=== PATIENT | male | born 1970 | race Caucasian/White ===

== ENCOUNTER 2025-05-02 08:57 | Observation (INO) | payer OTHER ==
[2025-05-02 09:32] LABS: Basophils # (A) 0.06 10*3/uL (0.00-0.10); Basophils % (A) 1.1 %; Eosinophils # (A) 0.19 10*3/uL (0.04-0.35); Eosinophils % (A) 3.4 %; HGB 16.4 g/dL (13.0-17.0); Lymphocytes # (A) 1.88 10*3/uL (0.90-5.00); Lymphocytes % (A) 33.7 %; MCH 28.7 pg (27.0-32.0); MCHC 33.5 g/dL (32.0-37.0); MCV 85.7 fL (80.0-97.0); Mean Platelet Volume 10.1 fL (9.5-12.2); Monocytes # (A) 0.74 10*3/uL (0.20-1.00); Monocytes % (A) 13.3 %; Neutrophils % (A) 48.3 %; Platelet Count 271 10*3/uL (140-440); RBC 5.72 10*6/uL (4.40-5.60); RDW 13.6 % (11.5-14.5); WBC 5.58 10*3/uL (4.50-10.00)
--- NOTE | 2025-05-02 09:36 | CT ---
EXAMINATION TYPE: CODE STROKE: CT brain wo contr DATE OF EXAM: 05/02/2025 9:30 AM COMPARISON: None. CLINICAL INDICATION: Male, 54 years old with history of Neuro deficit, acute, stroke suspected, confu hipolito/code stroke TECHNIQUE: Brain: Axial CT images of the brain were obtained with coronal and sagittal reformats created and rev iewed. Contrast used: None. Oral contrast used: None. CT DLP: 1072 mGycm, Automated exposure control for dose reduction was used. FINDINGS: Brain: Extra-axial spaces: No abnormal extra-axial fluid collections. Ventricular system: Within normal limits Cerebral parenchyma: No acute intraparenchymal hemorrhage or mass effect. The lozano-white junction is well differentiated. Cerebellum: Unremarkable. Mass effect: No evidence of midline shift. Intracranial vasculature: unremarkable Soft tissues: Normal. Calvarium/osseous structures: No depressed skull fracture. Paranasal sinuses and mastoid air cells: Mild scattered paranasal sinus disease. Visualized orbits: Orbital contents are intact. IMPRESSION: No acute intracranial process. Findings communicated to Qing Bauer DO on 05/02/2025 9:[address] Amadou Castellanos. [facility], , 05/02/2025 9:34 AM
[2025-05-02 09:50] LABS: ALT 37 U/L (4-49); AST 30 U/L (17-59); African American GFR (CKD) 86 (>60 ml/min/1.73 sqM); Albumin 4.5 g/dL (3.5-5.0); Alkaline Phosphatase 54 U/L (38-126); Anion Gap 11 mmol/L; Blood Urea Nitrogen 16 mg/dL (9-20); Carbon Dioxide 23 mmol/L (22-30); Chloride 108 mmol/L (98-107); Creatine Kinase 190 U/L (55-170); Glucose 126 mg/dL (74-99); Non-African American GFR(CKD) 74 (>60 ml/min/1.73 sqM); Potassium 3.7 mmol/L (3.5-5.1); Sodium 142 mmol/L (137-145); Total Bilirubin 0.6 mg/dL (0.2-1.3); Total Protein 7.7 g/dL (6.3-8.2)
--- NOTE | 2025-05-02 10:03 | CT ---
EXAMINATION TYPE: CT angio head neck DATE OF EXAM: 05/02/2025 9:53 AM COMPARISON: CT brain. CLINICAL INDICATION: Male, 54 years old with history of Neuro deficit, acute, stroke suspected; PHH, Code Stroke. Confusion. TECHNIQUE: Axially acquired helical CT angiogram of the head and neck was obtained with contrast. Axi al images are supplemented with 3D reconstructions and MIP images which were post-processed at an in dependent workstation. NASCET criteria used. Contrast used:65 ml mL of Isovue 370 with IV Contrast, Oral contrast used: None. CT DLP: 826.6 mGycm, Automated exposure control for dose reduction was used. FINDINGS: CTA HEAD: No evidence of acute intracranial hemorrhage, mass effect, or midline shift. The ventricles, sulci, a nd cisterns are unremarkable. Vertebral arteries: The vertebral arteries are patent. Vertebral artery dominance: Codominant Basilar artery: The basilar artery is intact. The basilar artery bifurcation is normal. Internal Carotid arteries: The cervical, petrous, cavernous and supraclinoid segments are normal. SHELLY: Patent with no evidence of aneurysm. ACOM: Present without evidence of aneurysm. MCA: Patent with no evidence of aneurysm. SALES AND MARKETING COORDINATOR: Patent with no evidence of aneurysm. origin right . PCOM: origin right and normal left Dural sinuses: Patent. CTA NECK: Right Carotid System: The common carotid artery and external carotid artery are patent. The carotid bifurcation demonstrate s no evidence of hemodynamically significant stenosis. The remaining portions of the internal carotid artery demonstrate normal size without significant narrowing. Left Carotid System: The common carotid artery and external carotid artery are patent. The carotid bifurcation demonstrate s no evidence of hemodynamically significant stenosis. The remaining portions of the internal carotid artery demonstrate normal size without significant narrowing. Vertebral arteries are patent without evidence hemodynamically significant stenosis. There is a three-vessel aortic arch. The origins of the great vessels are patent. No evidence of hemo dynamically significant stenosis. There is a 22 mm Isthmus thyroid nodule. IMPRESSION: 1. No evidence of dissection of the cervical internal carotid arteries or vertebral arteries. 2. No any evidence of significant stenosis at the carotid bifurcations. 3. No evidence of intracranial high-grade stenosis or intracranial aneurysm. 4. 22 mm Isthmus thyroid nodule. Outpatient nonemergent thyroid ultrasound recommended if not recent ly performed. [facility], , 05/02/2025 10:01 AM
[2025-05-02 10:09] LABS: Partial Thromboplastin Time 25.7 sec (22.0-30.0); Prothrombin Time 10.7 sec (10.0-12.5)
--- NOTE | 2025-05-02 10:35 | XR ---
EXAMINATION TYPE: XR chest 2V DATE OF EXAM: 05/02/2025 10:19 AM COMPARISON: None CLINICAL INDICATION: Male, 54 years old with history of altered mental status; [facility] TECHNIQUE: XR chest 2V Frontal and lateral views of the chest. FINDINGS: Lungs/Pleura: Low lung volumes are present. There is no evidence of pleural effusion, focal consolida tion, or pneumothorax. Pulmonary vascularity: Unremarkable. Heart/mediastinum: Cardiomediastinal silhouette is unremarkable. Musculoskeletal: No acute osseous pathology. IMPRESSION: Low lung volumes with a generalized hazy appearance which could represent atelectasis versus pulmonar y edema correlate with serum BNP. [facility], , 05/02/2025 10:32 AM
--- NOTE | 2025-05-02 11:41 | ED ---
Altered Mental Status HPI - General Chief Complaint: Altered Mental Status Stated Complaint: Confusion Time Seen by Provider: 05/02/25 09:10 Source: patient Mode of arrival: ambulatory Limitations: no limitations - History of Present Illness Initial Comments: 54-year-old male with no reported past medical history who presents to the emergency department with possible strokelike symptoms. Patient states he went to bed at 10 PM last night and he felt normal. He then awoke this morning and realized that he was having expressive aphasia. He called his mom who then brought him into the emergency department. Patient arrives with extremely elevated blood pressure. Denies history of hypertension but also does not see a doctor. He does admit to an occipital headache. No visual changes. No numbness, tingling or weakness in his extremities. No history of stroke. Patient does not take any medications. No other alleviating, precipitating or modifying factors - Related Data Previous Rx's Medication Instructions Recorded Acetaminophen Tab [Tylenol] 650 mg PO Q4HR PRN tab 05/04/25 Aspirin 81 mg PO DAILY #30 tab 05/04/25 Atorvastatin [Lipitor] 40 mg PO DAILY #30 tab 05/04/25 Clopidogrel [Plavix] 75 mg PO DAILY #30 tab 05/04/25 Metoprolol Tartrate [Lopressor] 12.5 mg PO BID #60 tab 05/04/25 amLODIPine [Norvasc] 10 mg PO DAILY #30 tab 05/04/25 Allergies Allergy/AdvReac Type Severity Reaction Status Date / Time No Known Allergies Allergy Verified 05/02/25 12:53 Review of Systems ROS Statement: Those systems with pertinent positive or pertinent negative responses have been documented in the HPI. ROS Other: All systems not noted in ROS Statement are negative. Past Medical History Past Medical History: No Reported History History of Any Multi-Drug Resistant Organisms: None Reported Past Surgical History: No Surgical Hx Reported Past Psychological History: No Psychological Hx Reported Smoking Status: Former smoker Past Alcohol Use History: None Reported Past Drug Use History: None Reported General Exam Limitations: no limitations General appearance: alert, in no apparent distress Head exam: Present: atraumatic, normocephalic, normal inspection Eye exam: Present: normal appearance, PERRL, EOMI. Absent: scleral icterus, conjunctival injection, periorbital swelling ENT exam: Present: normal exam, mucous membranes moist Neck exam: Present: normal inspection. Absent: tenderness, meningismus, lymphadenopathy Respiratory exam: Present: normal lung sounds bilaterally. Absent: respiratory distress, wheezes, rales, rhonchi, stridor Cardiovascular Exam: Present: normal rhythm, tachycardia, normal heart sounds. Absent: systolic murmur, diastolic murmur, rubs, gallop, clicks GI/Abdominal exam: Present: soft, normal bowel sounds. Absent: distended, tenderness, guarding, rebound, rigid Extremities exam: Present: normal inspection, full ROM, normal capillary refill. Absent: tenderness, pedal edema, joint swelling, calf tenderness Back exam: Present: normal inspection Neurological exam: Present: alert, oriented X3, CN II-XII intact, other (Mild expressive aphasia) Psychiatric exam: Present: normal affect, normal mood Skin exam: Present: warm, dry, intact, normal color. Absent: rash Course Vital Signs 05/02/25 05/02/25 05/02/25 09:04 09:08 09:53 Temperature 98 F Pulse Rate 114 H 95 Pulse Rate [ Pulse Oximetery ] Respiratory 20 20 Rate Blood Pressure 206/126 191/136 172/130 Blood Pressure [Left Arm] O2 Sat by Pulse 97 99 Oximetry 05/02/25 05/02/25 05/02/25 10:33 12:25 14:27 Temperature Pulse Rate 100 96 86 Pulse Rate [ Pulse Oximetery ] Respiratory 20 20 20 Rate Blood Pressure 181/131 190/130 180/119 Blood Pressure [Left Arm] O2 Sat by Pulse 95 97 97 Oximetry 05/02/25 05/02/25 15:10 15:22 Temperature 97.9 F Pulse Rate 91 Pulse Rate [ 91 Pulse Oximetery ] Respiratory 20 18 Rate Blood Pressure 178/112 Blood Pressure 193/120 [Left Arm] O2 Sat by Pulse 97 97 Oximetry Medical Decision Making - Medical Decision Making Was pt. sent in by a medical professional or institution (, PA, APPLICATION ADMINISTRATOR, urgent care, hospital, or fdc...) When possible be specific @ -No Did you speak to anyone other than the patient for history (EMS, parent, family, police, friend...)? What history was obtained from this source @ -I spoke with the patient's mother for history Did you review nursing and triage notes (agree or disagree)? Why? @ -I reviewed and agree with nursing and triage notes Were old charts reviewed (outside hosp., previous admission, EMS record, old EKG, old radiological studies, urgent care reports/EKG's, fdc records)? Report findings @ -No old charts were reviewed Differential Diagnosis (chest pain, altered mental status, abdominal pain women, abdominal pain men, vaginal bleeding, weakness, fever, dyspnea, syncope, headache, dizziness, GI bleed, back pain, seizure, CVA, palpatations, mental hea lth, musculoskeletal)? @ -Differential CVA Ischemic stroke, hemorrhagic stroke, brain tumor, atypical migraine, Wernicke's encephalopathy, seizure, multiple sclerosis, meningitis, encephalitis, hypo glycemia, Guillain-Mccoy, electrolytes disturbance, myasthenia gravis.... This is not meant to be an all-inclusive list EKG interpreted by me (3pts min.). @ -Yes and demonstrates sinus rhythm with a rate of 94. NV interval 148. QRS 100. QTc of 409. No acute ST segment elevations or depressions X-rays interpreted by me (1pt min.). @ -Yes and demonstrates no acute process CT interpreted by me (1pt min.). @ -Yes and demonstrates no stroke U/S interpreted by me (1pt. min.). @ -None done What testing was considered but not performed or refused? (CT, X-rays, U/S, labs)? Why? @ -None What meds were considered but not given or refused? Why? @ -None Did you discuss the management of the patient with other professionals (professionals i.e. , PA, APPLICATION ADMINISTRATOR, lab, RT, psych nurse, child protective services social worker, warm in worker, teacher, occupational medicine officer, catalytic case operator)? Give summary @ -I spoke with Dr. Campoverde. The patient is outside the window for TNKase. No large vessel occlusion Was smoking cessation discussed for >3mins.? @ -No Was critical care preformed (if so, how long)? @ -35 minutes for activation of code stroke Were there social determinants of health that impacted care today? How? (Homelessness, low income, unemployed, alcoholism, drug addiction, transportation, low edu. Level, literacy, decrease access to med. care, senior living, rehab)? @ -No Was there de-escalation of care discussed even if they declined (Discuss DNR or withdrawal of care, Hospice)? DNR status @ -No What co-morbidities impacted this encounter? (DM, HTN, Smoking, COPD, CAD, Cancer, CVA, ARF, Chemo, Hep., AIDS, mental health diagnosis, sleep apnea, morbid obesity)? @ -None Was patient admitted / discharged? Hospital course, mention meds given and route, prescriptions, significant lab abnormalities, going to OR and other [facility] info. @ -Upon arrival patient seen and evaluated in trauma 3. Thorough history and physical exam was performed. Patient does receive a score of 1 on the NIH scale due to his expressive aphasia. No other symptoms. Last known well was 10 PM last night before he went to bed. IV is established. Patient does go for CT and CTA which demonstrates no acute process. I did speak with the neuroi ntensivist Dr. Campoverde. Patient is outside the window for TNKase. No large vessel occlusion for thrombectomy. He did recommend aspirin and statin. He does recommend reduction in the patient's blood pressure by 10%. Patient will be admitted to the hospital for neurology consultation, MRI. I spoke with Dr. Villar for the admission Undiagnosed new problem with uncertain prognosis? @ -Yes Drug Therapy requiring intensive monitoring for toxicity (Heparin, Nitro, Insulin, Cardizem)? @ -No Were any procedures done? @ -No Diagnosis/symptom? @ -Acute expressive aphasia, possible CVA, accelerated hypertension Acute, or Chronic, or Acute on Chronic? @ -Acute Uncomplicated (without systemic symptoms) or Complicated (systemic symptoms)? @ -Complicated Side effects of treatment? @ -No Exacerbation, Progression, or Severe Exacerbation? @ -No Poses a threat to life or bodily function? How? (Chest pain, [place], [place], pneumonia, PE, COPD, DKA, ARF, appy, cholecystitis, CVA, Diverticulitis, Homicidal, Suicidal, threat to staff... and all critical care pts) @ -Yes this patient has strokelike symptoms - Lab Data Result diagrams: 05/04/25 06:59 05/04/25 06:59 Lab Results 05/02/25 05/02/25 05/02/25 Range/Units 09:25 09: 09: WBC 5.58 (4.50-10.00) 10*3/uL RBC 5.72 H (4.40-5.60) 10*6/uL Hgb 16.4 (13.0-17.0) g/dL Hct 49.0 (39.6-50.0) % MCV 85.7 (80.0-97.0) fL MCH 28.7 (27.0-32.0) pg MCHC 33.5 (32.0-37.0) g/dL Plt Count 271 (140-440) 10*3/uL MPV 10.1 (9.5-12.2) fL Immature Gran % (Auto) 0.2 % Neutrophils % 48.3 % Lymphocytes % 33.7 % Monocytes % 13.3 % Eosinophils % 3.4 % Basophils % 1.1 % Immature Gran # 0.01 (0.00-0.04) 10*3/uL Neutrophils # 2.70 (1.80-7.70) 10*3/uL Lymphocytes # 1.88 (0.90-5.00) 10*3/uL Monocytes # 0.74 (0.20-1.00) 10*3/uL Eosinophils # 0.19 (0.04-0.35) 10*3/uL Basophils # 0.06 (0.00-0.10) 10*3/uL PT 10.7 (10.0-12.5) sec INR 1.0 (<1.2) APTT 25.7 (22.0-30.0) sec Sodium 142 (137-145) mmol/L Potassium 3.7 (3.5-5.1) mmol/L Chloride 108 H (98-107) mmol/L Carbon Dioxide 23 (22-30) mmol/L Anion Gap 11 mmol/L BUN 16 (9-20) mg/dL Creatinine 1.12 (0.66-1.25) mg/dL Est GFR (CKD-EPI)AfAm 86 (>60 ml/min/1.73 sqM) Est GFR (CKD-EPI)NonAf 74 (>60 ml/min/1.73 sqM) Glucose 126 H (74-99) mg/dL Estimated Ave Glu mg/dL mg/dL Hemoglobin A1c (<=6.0) % Calcium 9.0 (8.4-10.2) mg/dL Total Bilirubin 0.6 (0.2-1.3) mg/dL AST 30 (17-59) U/L ALT 37 (4-49) U/L Alkaline Phosphatase 54 (38-126) U/L Creatine Kinase 190 H (55-170) U/L Troponin I (0.000-0.034) ng/mL Total Protein 7.7 (6.3-8.2) g/dL Albumin 4.5 (3.5-5.0) g/dL TSH (0.465-4.680) mIU/L 05/02/25 05/02/25 05/02/25 Range/Units 09:25 09:25 09:25 WBC (4.50-10.00) 10*3/uL RBC (4.40-5.60) 10*6/uL Hgb (13.0-17.0) g/dL Hct (39.6-50.0) % MCV (80.0-97.0) fL MCH (27.0-32.0) pg MCHC (32.0-37.0) g/dL Plt Count (140-440) 10*3/uL MPV (9.5-12.2) fL Immature Gran % (Auto) % Neutrophils % % Lymphocytes % % Monocytes % % Eosinophils % % Basophils % % Immature Gran # (0.00-0.04) 10*3/uL Neutrophils # (1.80-7.70) 10*3/uL Lymphocytes # (0.90-5.00) 10*3/uL Monocytes # (0.20-1.00) 10*3/uL Eosinophils # (0.04-0.35) 10*3/uL Basophils # (0.00-0.10) 10*3/uL PT (10.0-12.5) sec INR (<1.2) APTT (22.0-30.0) sec Sodium (137-145) mmol/L Potassium (3.5-5.1) mmol/L Chloride (98-107) mmol/L Carbon Dioxide (22-30) mmol/L Anion Gap mmol/L BUN (9-20) mg/dL Creatinine (0.66-1.25) mg/dL Est GFR (CKD-EPI)AfAm (>60 ml/min/1.73 sqM) Est GFR (CKD-EPI)NonAf (>60 ml/min/1.73 sqM) Glucose (74-99) mg/dL Estimated Ave Glu mg/dL 126 mg/dL Hemoglobin A1c 6.0 (<=6.0) % Calcium (8.4-10.2) mg/dL Total Bilirubin (0.2-1.3) mg/dL AST (17-59) U/L ALT (4-49) U/L Alkaline Phosphatase (38-126) U/L Creatine Kinase (55-170) U/L Troponin I <0.012 (0.000-0.034) ng/mL Total Protein (6.3-8.2) g/dL Albumin (3.5-5.0) g/dL TSH 0.870 (0.465-4.680) mIU/L Disposition Clinical Impression: Aphasia Disposition: ADMITTED IP TO THIS [facility] Condition: Stable Is patient prescribed a controlled substance at d/c from ED?: No Time of Disposition: 11:44 Decision to Admit Reason: Admit from EC Decision Date: 05/02/25 Decision Time: 11:44
[2025-05-02] MEDS ORDERED: NALOXONE 0.4 MG/ML 1 ML VIAL IV PRN (11:51)
--- NOTE | 2025-05-02 12:41 | P.HPIM ---
History of Present Illness This is a pleasant 54 years old male with no significant past medical history He brought by his mother because he started feeling unwell, he has some memory problems that were reportedly difficult to problem First his symptoms started this morning Patient was up this morning and could not talk freely because he is having word finding difficulty as well as memory problem Patient also has been having headache with no specification up-and-down mainly in the occipital area on both sides. Blood pressure was elevated 181/131, heart rate 100 and breathing rate around 20. Currently blood pressure is 190/132# Review of Systems Review of systems CONSTITUTIONAL: No fever, no malaise, no fatigue. HEENT: No recent visual problems or hearing problems. Denied any sore throat. CARDIOVASCULAR: No orthopnea, PND, no palpitations, no syncope. PULMONARY: No shortness of breath, no cough, no hemoptysis. GASTROINTESTINAL: No diarrhea, no nausea, no vomiting, no abdominal pain. Normoactive bowel sounds. NEUROLOGICAL: No headaches, no weakness, no numbness. HEMATOLOGICAL: Denies any bleeding or petechiae. GENITOURINARY: Denies any burning micturition, frequency, or urgency. MUSCULOSKELETAL/RHEUMATOLOGICAL: Denies any joint pain, swelling, or any muscle pain. ENDOCRINE: Denies any polyuria or polydipsia. Past Medical History Past Medical History: No Reported History History of Any Multi-Drug Resistant Organisms: None Reported Past Surgical History: No Surgical Hx Reported Past Psychological History: No Psychological Hx Reported Smoking Status: Former smoker Past Alcohol Use History: None Reported Past Drug Use History: None Reported Medications and Allergies Allergies Allergy/AdvReac Type Severity Reaction Status Date / Time No Known Allergies Allergy Verified 05/02/25 09:08 Physical Exam Vitals: Vital Signs Temp Pulse Resp BP Pulse Ox 05/02/25 12:25 96 20 190/130 97 05/02/25 10:33 100 20 181/131 95 05/02/25 09:53 95 20 172/130 99 05/02/25 09:08 191/136 05/02/25 09:04 98 F 114 H 20 206/126 97 Intake and Output 05/01/25 05/02/25 05/02/25 22:59 06:59 14:59 Other: Weight 122.47 kg GENERAL: The patient is alert and oriented x3, not in any acute distress. Well developed, well nourished. HEENT: Pupils are round and equally reacting to light. EOMI. No scleral icterus. No conjunctival pallor. Normocephalic, atraumatic. No pharyngeal erythema. No thyromegaly. CARDIOVASCULAR: S1 and S2 present. No murmurs, rubs, or gallops. PULMONARY: Chest is clear to auscultation, no wheezing , no crackles. ABDOMEN: Soft, nontender, nondistended, normoactive bowel sounds. No palpable organomegaly. MUSCULOSKELETAL: No joint swelling or deformity. EXTREMITIES: No cyanosis, clubbing, or pedal edema. NEUROLOGICAL: Gross neurological examination did not reveal any focal deficits. SKIN: No rashes. no petechiae. Results CBC & Chem 7: 05/02/25 09:05/02/25 09:25 Labs: Abnormal Lab Results - Last 24 Hours (Table) 05/02/25 05/02/25 Range/Units : 09:25 RBC 5.72 H (4.40-5.60) 10*6/uL Chloride 108 H (98-107) mmol/L Glucose 126 H (74-99) mg/dL Creatine Kinase 190 H (55-170) U/L Assessment and Plan Assessment: Expressive aphasia and memory problem/loss, rule out stroke versus other neurological disease Hypertensive urgency, present on admission Obesity with BMI of 36.6 Plan: Continue with aspirin Continue with statin Start blood pressure medication with close monitoring, permissive hypertension may be allowed for stroke. Will start Norvasc 5 mg daily Neurology team consult Check echocardiogram and carotid duplex Labs and medication were reviewed.. Continue same treatment. Continue with symptomatic treatment. Resume home medication. Monitor labs and vitals. DVT and GI prophylaxis. Further recommendations as per clinical course of the patient DVT prophylaxis: Subcutaneous heparin GI Prophylaxis: Pepcid Prognosis is guarded
[2025-05-02] MEDS: ASPIRIN 325 MG TAB PO STA (13:04)
[2025-05-02] MEDS: ACETAMINOPHEN TAB 500 MG TAB PO STA (13:05)
[2025-05-02] MEDS: amLODIPine 5 MG TAB PO SCH (13:05)
[2025-05-02] MEDS: ATORVASTATIN 40 MG TAB PO SCH (13:06)
[2025-05-02] MEDS: LABETALOL 5 MG/ML VIAL MDV IVP STA (13:07)
--- NOTE | 2025-05-02 14:39 | US ---
EXAMINATION TYPE: US carotid duplex BILAT DATE OF EXAM: 05/02/2025 COMPARISON: CTA same day CLINICAL INDICATION: Male, 54 years old with history of Aphasia and memory loss; TECHNIQUE: Grayscale, color Doppler and spectral Doppler evaluation of the bilateral carotid systems and vertebral arteries. Indirect Doppler criteria was utilized. FINDINGS: EXAM MEASUREMENTS: RIGHT: Peak Systolic Velocity (PSV) cm/sec ----- Right CCA: 75.4 ----- Right ICA: 60.8 ----- Right ECA: 49.9 ICA/CCA ratio: 0.8 RIGHT: End Diastole cm/sec ----- Right CCA: 17.1 ----- Right ICA: 24.8 ----- Right ECA: 8.6 LEFT: Peak Systolic Velocity (PSV) cm/sec ----- Left CCA: 67.2 ----- Left ICA: 74.6 ----- Left ECA: 66.0 ICA/CCA ratio: 1.1 LEFT: End Diastole cm/sec ----- Left CCA: 12.7 ----- Left ICA: 28.2 ----- Left ECA: 12.7 VERTEBRALS (direction of flow): Right Vertebral: Antegrade Left Vertebral: Antegrade Rhythm: Normal IMPRESSION: Right: No hemodynamically significant stenosis. Left: No hemodynamically significant stenosis. Criteria for Assigning % of Stenosis / Diameter reduction (Estimation based on the indirect measurements of the internal carotid artery velocities (ICA PSV). 1. Normal (no stenosis)=ICA PSV < 180 cm/s: ratio < 2.0: ICA EDV<40 cm/s. 2. Less than 50% stenosis=ICA PSV < 180 cm/s: ratio < 2.0: ICA EDV<40 cm/s. 3. 50 to 69% stenosis=ICA PSV of 180 to 230 cm/s: ration 2.0 ? 4.0: ICA EDV 40-100 cm/s. PSV 125-180 cm/sec and ICA/CCA PSV Ratio ? 2.0 is also consistent with 50-69% stenosis 4. Greater than 70% stenosis to near occlusion= ICA PSV > 230 cm/s: ratio > 4.0: ICA EDV > 100 cm/s. 5. Near occlusion= ICA PSV velocities may be low or undetectable: variable ratio and ICA EDV. 6. Total occlusion=unable to detect flow. [facility], , 05/02/2025 2:36 PM
--- NOTE | 2025-05-02 14:40 | P.CNNES ---
History of Present Illness Consult date: 05/02/25 Reason for Consult: Expressive aphasia History of Present Illness: The patient is a 54-year-old male who was seen in neurologic consultation on 2024, in collaboration with Amy Sparks, via teleneurology. History is obtained from the patient, his mother who is present at the bedside at the time of the evaluation, and the chart. The patient reports feeling fine when he went to bed last p.m. at approximately 10 PM. He says that when he awoke this morning he felt somewhat confused and was having difficulty with his speech. He says that he called his mother. His mother came over to the house and found the patient to be having difficulty getting his words out. She says she did not notice any other abnormalities. There is no reported facial droop, weakness or difficulty ambulating. The patient's mother reports that he was able to walk down 2 flights of stairs and get into the car, without difficulty. The patient himself is aware of his deficits. He feels as if he is confused but also agrees that he is having diffi culty getting his words out. The patient denies a history of stroke. There is no reported history of similar symptoms. No history of seizure, TIA, syncope. Patient denies associated numbness, tingling, weakness, difficulty ambulating, difficulty swallowing and changes in vision. Patient does report having a headache. Upon arrival to the emergency department, CT scan of the brain was performed. There is no reported evidence of acute hemorrhage or infarct. I did review these images personally. I agree with the radiology report. CT angiogram of the head and neck revealed no evidence of significant stenosis or large vessel occlusion. Laboratory evaluation in the emergency department was essentially negative. The patient's blood pressure was markedly elevated however, upon presentation, at 181/131, subsequent reading was 215/144. Past Medical History Past Medical History: No Reported History History of Any Multi-Drug Resistant Organisms: None Reported Past Surgical History: No Surgical Hx Reported Past Psychological History: No Psychological Hx Reported Smoking Status: Former smoker Past Alcohol Use History: None Reported Past Drug Use History: None Reported Medications and Allergies Home Medications Medication Instructions Recorded Confirmed Type No Known Home Medications 05/02/25 05/02/25 History Allergies Allergy/AdvReac Type Severity Reaction Status Date / Time No Known Allergies Allergy Verified 05/02/25 12:53 Physical Examination - Vital Signs Vital Signs: Vital Signs Temp Pulse Resp BP Pulse Ox 05/02/25 10:33 100 20 181/131 95 05/02/25 09:53 95 20 172/130 99 05/02/25 09:08 191/136 05/02/25 09:04 98 F 114 H 20 206/126 97 Intake and Output 05/01/25 05/02/25 05/02/25 22:59 06:59 14:59 Other: Weight 122.47 kg General: The patient is reclining in the bed, well-nourished, well-developed and in no acute distress HEENT: Head is atraumatic, normocephalic. Fundus not visualized. There is no scleral icterus. Mucous membranes are moist. Neck: Supple without carotid bruits Heart: Regular rate and rhythm Lungs: No obvious shortness of breath or cough Extremities: Without edema Neurological examination Mental status: The patient is awake and alert. The patient is able to answer simple yes/no questions. There is a anomia present. The patient has word finding difficulties. When he is able to answer questions, sometimes the words are dysarthric and sometimes incorrect, in regards to the question asked. The patient has evidence of receptive aphasia as well. He sometimes has difficulty following instructions. The patient is able to mimic instructions that are demonstrated to the patient Cranial nerves: Pupils are equal at 4 mm and reactive. Visual mario are full to confrontation. There is no nystagmus. Facial sensation is intact. There is no facial asymmetry. Hearing is grossly intact. Uvula and palate are midline. Shoulder shrug is symmetric. Tongue protrudes midline. Motor: Strength is 5/5 in the bilateral upper and lower extremities. Sensation: Intact to light touch throughout. There is no extinction with double simultaneous stimulation. Coordination: [id number], rapid alternating movements and zvcu-do-[id number] testing are intact. There is no pronator drift. Deep tendon reflexes: 2+/4+ in the bilateral upper extremities. Bilateral patellar reflexes 3+/4+. Gait: Not assessed Results CT scan of the brain images have been personally viewed. There is no evidence of acute hemorrhage or infarct. I agree with the radiology report - Laboratory Findings CBC and BMP: 05/02/25 09:25 05/02/25 09:25 Abnormal Lab Findings: Abnormal Labs 05/02/25 05/02/25 09:25 09:25 RBC 5.72 H Chloride 108 H Glucose 126 H Creatine Kinase 190 H Assessment and Plan Assessment: 1. Acute infarct involving the left frontotemporal region, resulting in expressive >receptive aphasia. The patient did not receive TNK in the emergency department, because he was outside of the time window. 2. Hypertensive urgency Plan: 1. Cardene for blood pressure control. Blood pressure should be maintained between 160 and 180 systolic. 2. Stroke order set has been placed by the primary team 3. Dual antiplatelet therapy should be initiated 4. High intensity statin should be initiated 5. MRI of the brain has been ordered for further evaluation of ischemia 6. Heart healthy diet is recommended for further stroke prevention 7. Exercise, for weight loss and further stroke prevention Thank you for allowing us to participate in the care of this patient Dr. Hylton will assume neurologic coverage of this patient as of May 03, 2025 Time with Patient: Greater than 30 (75 minutes were spent caring for this patient today including, obtaining history, examining the patient, reviewing imaging, chart documentation, labs, placing orders and creating this note)
[2025-05-02] MEDS: hydrALAZINE HCL 20 MG/ML 1 ML VIAL IVP PRN (18:12)
[2025-05-02] MEDS: HEPARIN SODIUM,PORCINE 5,000 UNIT/ML 1 ML VIAL SQ SCH (21:02)
[2025-05-02] MEDS: FAMOTIDINE 20 MG/2 ML VIAL IV SCH (21:02)
[2025-05-02] MEDS: ACETAMINOPHEN TAB 325 MG TAB PO PRN (23:21)
[2025-05-03 06:56] LABS: Basophils # (A) 0.04 10*3/uL (0.00-0.10); Basophils % (A) 0.7 %; Eosinophils # (A) 0.21 10*3/uL (0.04-0.35); Eosinophils % (A) 3.7 %; HCT 43.3 % (39.6-50.0); HGB 14.4 g/dL (13.0-17.0); Lymphocytes # (A) 1.92 10*3/uL (0.90-5.00); Lymphocytes % (A) 33.5 %; MCH 28.8 pg (27.0-32.0); MCHC 33.3 g/dL (32.0-37.0); MCV 86.6 fL (80.0-97.0); Mean Platelet Volume 10.7 fL (9.5-12.2); Monocytes # (A) 0.54 10*3/uL (0.20-1.00); Monocytes % (A) 9.4 %; Neutrophils % (A) 52.4 %; Platelet Count 246 10*3/uL (140-440); RDW 13.7 % (11.5-14.5); WBC 5.73 10*3/uL (4.50-10.00)
[2025-05-03 07:17] LABS: African American GFR (CKD) 85 (>60 ml/min/1.73 sqM); Anion Gap 8 mmol/L; Blood Urea Nitrogen 14 mg/dL (9-20); Calcium 8.6 mg/dL (8.4-10.2); Carbon Dioxide 27 mmol/L (22-30); Chloride 105 mmol/L (98-107); Glucose 119 mg/dL (74-99); Non-African American GFR(CKD) 74 (>60 ml/min/1.73 sqM); Potassium 3.4 mmol/L (3.5-5.1); Sodium 140 mmol/L (137-145)
[2025-05-03] MEDS: ASPIRIN 81 MG PO SCH (08:21)
[2025-05-03] MEDS: CLOPIDOGREL 75 MG TAB PO SCH (08:21)
[2025-05-03 08:29] VITALS: RESP 17
[2025-05-03 10:21] LABS: Chol/HDL Ratio 5.49 Ratio; LDL Cholesterol,Calculated 89.7 mg/dL (0.0-131.0)
[2025-05-03] MEDS ORDERED: Magnesium Replacement Protocol 1 EACH MISC MISCELLANE PRN (10:48)
[2025-05-03] MEDS ORDERED: Potassium Replacement Protocol 1 EACH MISC MISCELLANE PRN (10:48)
[2025-05-03] MEDS: POTASSIUM CHLORIDE ER 20 MEQ TAB.ER PO ONE (11:42)
[2025-05-03] MEDS: METOPROLOL TARTRATE 12.5 MG TAB PO SCH (11:42)
--- NOTE | 2025-05-03 14:31 | P.PN ---
Subjective Progress Note Date: 05/03/25 I am seeing the patient for the first time during this admission. Please refer to Dr. Aburto's note for further details. It seems the patient has hypertension that is uncontrolled and he stopped taking medications on his own and does not follow-up with PCP for a while. he presents to the hospital because of speech difficulty, in which he knew what he wanted to say but was not able to get words out. He stated it lasted most of the day yesterday and today feels back to baseline. Objective - Vital Signs Vital signs: Vital Signs Temp 98.1 F 05/03/25 11:41 Pulse 79 05/03/25 11:41 Resp 17 05/03/25 11:41 BP 181/128 05/03/25 11:41 Pulse Ox 97 05/03/25 11:41 FiO2 Intake & Output 05/02/25 05/03/25 05/03/25 18:59 06:59 18:59 Intake Total 130 Balance 130 Weight 122.47 kg 124.6 kg Intake: IV 10 Invasive Line 1 10 Oral 120 Other: Voiding Method Toilet Toilet # Voids 1 - Exam GENERAL: The patient is lying in bed and is not in acute distress. NEUROLOGICAL: Higher mental function: The patient is awake, alert, oriented to self, place and time. Patient is following commands. No aphasia and no neglect. Cranial nerves: The pupils are round, equal and reactive to light. Visual mario are full to confrontation throughout. Extraocular movement is intact no nystagmus is noted. Facial sensation is normal to touch throughout. The facial strength is normal throughout. Tongue is midline and moved [id number] without any difficulty. No dysarthria is noted. Shoulder shrug is normal bilaterally. Motor: The strength is 5 over 5 throughout. Normal tone and bulk. Cerebellum: Normal finger to nose bilaterally. Sensation: Sensation is normal to touch throughout. - Labs CBC & Chem 7: 05/03/25 05:38 05/03/25 05:33 Labs: Abnormal Lab Results - Last 24 Hours (Table) 05/03/25 Range/Units 05:33 Potassium 3.4 L (3.5-5.1) mmol/L Glucose 119 H (74-99) mg/dL Triglycerides 165.00 H (0.00-149.00) mg/dL HDL Cholesterol 27.30 L (40.00-60.00) mg/dL Assessment and Plan Assessment: This is a 54 y/o gentleman with uncontrolled HTN that stopped taking medications for a couple years who presents because of speech difficulty, not able to get his words out. Transient ischemic attack (TIA) because of uncontrolled risk factors (uncontrolled HTN, dyslipidemia, obese) Hypertension urgency Hypertriglyceridemia Thyroid nodule on CTA History of hypertension and not compliant taking his medication Obesity Plan: Continue ASA 81mg and Plavix 75mg daily for 21 days and after that stop Plavix but continue ASA indefinitely. Is on Lipitor 40mg daily. Pending MRI Brain, 2D echo. Continue neuro checks Cardiac monitoring PT, OT and LABORATORY OPERATIONS COORDINATOR are consulted Patient was counseled on the importance of medication compliance and making sure his blood pressure is controlled. Upon discharge, recommend the patient to follow-up with outpatient neurologist within 2-3 weeks. For DVT prophylaxis: Is on subq heparin The plan is discussed with patient and family members who are bedside (mother and brother). Time with Patient: Less than 30
--- NOTE | 2025-05-04 01:45 | PN ---
PROGRESS NOTE DATE OF SERVICE: 05/03/2025 SUBJECTIVE: This 54-year-old gentleman was admitted with aphasia and speech problems, is being closely monitored. The patient is being evaluated to rule out the possible acute stroke. No chest pain. No palpitation. PHYSICAL EXAMINATION: VITAL SIGNS: Pulse is 81, blood pressure 177/120, and respirations 17. CHEST: Clear to auscultation. CARDIOVASCULAR: S1, S2. ABDOMEN: Soft. NERVOUS SYSTEM: Nonfocal. LABORATORY DATA: Reviewed. ASSESSMENT: 1. Expressive aphasia, possible acute stroke. 2. Hypertension. 3. Obesity. RECOMMENDATIONS: Recommend to continue current management and continue symptomatic treatment. Otherwise, await MRI as well as neurovascular workup including 2D echo. Closely follow with Neurology. The patient is started on amlodipine and I will add Lopressor to the current regimen. Further recommendations to follow. MMADEELL / PANFILON: [id number] /
[2025-05-04] MEDS: POTASSIUM CHLORIDE ER 20 MEQ TAB.ER PO SCH (03:37)
[2025-05-04 07:49] LABS: Basophils # (A) 0.03 10*3/uL (0.00-0.10); Basophils % (A) 0.5 %; Eosinophils # (A) 0.18 10*3/uL (0.04-0.35); Eosinophils % (A) 2.8 %; HCT 46.1 % (39.6-50.0); HGB 15.3 g/dL (13.0-17.0); Lymphocytes % (A) 30.8 %; MCH 28.4 pg (27.0-32.0); MCHC 33.2 g/dL (32.0-37.0); MCV 85.7 fL (80.0-97.0); Mean Platelet Volume 10.2 fL (9.5-12.2); Monocytes # (A) 0.44 10*3/uL (0.20-1.00); Monocytes % (A) 6.8 %; Neutrophils # (A) 3.82 10*3/uL (1.80-7.70); Neutrophils % (A) 58.8 %; Platelet Count 282 10*3/uL (140-440); RBC 5.38 10*6/uL (4.40-5.60); RDW 13.8 % (11.5-14.5); WBC 6.49 10*3/uL (4.50-10.00)
[2025-05-04 08:06] LABS: African American GFR (CKD) 89 (>60 ml/min/1.73 sqM); Anion Gap 11 mmol/L; Blood Urea Nitrogen 11 mg/dL (9-20); Carbon Dioxide 25 mmol/L (22-30); Chloride 106 mmol/L (98-107); Glucose 108 mg/dL (74-99); Non-African American GFR(CKD) 77 (>60 ml/min/1.73 sqM); Potassium 3.8 mmol/L (3.5-5.1); Sodium 142 mmol/L (137-145)
[2025-05-04] MEDS ORDERED: MIDAZOLAM 2 MG/2 ML VIAL IV PRN (08:27)
[2025-05-04] MEDS ORDERED: BENZOCAINE SPRAY 1 EACH MM PRN (08:27)
[2025-05-04] MEDS ORDERED: fentaNYL (PF) 50 MCG/ML 2 ML AMP IVP PRN (08:27)
[2025-05-04] MEDS: BENZOCAINE SPRAY 1 EACH MM ONE (09:30)
[2025-05-04] MEDS: fentaNYL (PF) 50 MCG/ML 2 ML AMP IVP ONE (09:40)
[2025-05-04] MEDS: MIDAZOLAM 2 MG/2 ML VIAL IVP ONE (09:40)
--- NOTE | 2025-05-04 09:50 | P.CRDCN ---
History of Present Illness Consult date: 05/04/25 Reason for Consult (text): stroke, need MYNOR History of present illness: This is a 54-year-old male with no previous cardiac history and does not follow with a customer services supervisor. No significant past medical history. Patient is not taking any medications has not followed up with his P CP in quite some time. Patient states he developed difficulty spelling normal words and then he started forgetting names and simple things. He came to the hospital for further evaluation. By Saturday he gradually had started to remember things. He states he took a nap and when he woke up he had significant improvement of his memory. He has been diagnosed with TIA from neurology. They have requested a MYNOR to rule out cardiac source. Patient denies history of tobacco use, alcohol use, illicit drug use. His symptoms have now completely resolved. Patient presented with a blood pressure of 206/126 and blood pressure readings remain elevated 187/117. Heart rate is in the 80s and 90s, pulse ox 96% on room air. Discussed recommendations for MYNOR and patient is agreeable to move forward with this today. -EKG: Sinus rhythm with no acute ST-T wave changes. -Chest x-ray: Low lung volumes with generalized hazy appearance which could represent atelectasis versus pulmonary edema. -Carotid duplex revealed no hemodynamically significant stenosis bilaterally. -CT brain: No acute process. -CTA head and neck: No evidence of acute intracranial hemorrhage, mass effect or midline shift. No dissection of the cervical internal carotid arteries or vertebral arteries. No stenosis of the carotid bifurcations. 22 mm thyroid nodule. -Laboratory studies: CBC, electrolytes, renal function, liver function test all within normal limits. A1c 6.0. TSH 0.87. Triglycerides 165, cholesterol 150, LDL 89. -Home cardiac medications: None. Review Of Systems: At the time of my exam: CONSTITUTIONAL: Denies fever or chills. HEENT: Denies blurred vision, vision changes, or eye pain. Denies hemoptysis CARDIOVASCULAR: Denies chest pain. Denies orthopnea. Denies PND. Denies palpitations RESPIRATORY: Denies shortness of breath. GASTROINTESTINAL: Denies abdominal pain. Denies nausea or vomiting. HEMATOLOGIC: Denies bleeding disorders. GENITOURINARY: Denies any blood in urine. SKIN: Denies puritis. Denies rash. Physical examination: Gen: This is a 54-year-old male in no acute distress VS: reviewed HEENT: Head is atraumatic, normocephalic. Pupils equal, round. Sclerae is anicteric. NECK: Supple. No JVD. LUNGS: Clear to auscultation. No wheezes or rhonchi. No intercostal retractions. HEART: Regular rate and rhythm. No murmur. ABDOMEN: Soft No tenderness. EXTREMITIES: No pedal edema. No calf tenderness. NEUROLOGICAL: Patient is awake, alert and oriented x3. Assessment: TIA Hypertriglyceridemia Obesity with BMI 36 Plan: Patient has been started on the following cardiac medications: Amlodipine increased to 10 mg today, aspirin, atorvastatin, Plavix, Lopressor 12.5 mg twice daily Patient will be scheduled for MYNOR this morning N.p.o. Patient will obtain 30-day event monitor prior to discharge Patient will follow-up in the office with Dr. Teri Young in 6 weeks Further recommendations to follow based upon clinical course Thank you kindly for this consultation. Nurse practitioner note has been reviewed, I agree with documented findings and plan of care. Patient was seen and examined. Past Medical History Past Medical History: No Reported History History of Any Multi-Drug Resistant Organisms: None Reported Past Surgical History: No Surgical Hx Reported Past Psychological History: No Psychological Hx Reported Smoking Status: Former smoker Past Alcohol Use History: None Reported Past Drug Use History: None Reported Medications and Allergies Home Medications Medication Instructions Recorded Confirmed Type No Known Home Medications 05/02/25 05/02/25 History Allergies Allergy/AdvReac Type Severity Reaction Status Date / Time No Known Allergies Allergy Verified 05/02/25 12:53 Physical Exam Vitals: Vital Signs Temp Pulse Resp BP Pulse Ox 05/04/25 03:35 94 17 152/82 98 05/03/25 23:03 87 17 164/94 97 05/03/25 19:25 98.1 F 95 17 167/82 96 05/03/25 18:18 181/125 05/03/25 16:00 98 F 87 17 167/115 98 05/03/25 11:41 98.1 F 79 17 181/128 97 Intake and Output 05/03/25 05/04/25 05/04/25 22:59 06:59 14:59 Intake Total 250 10 Balance 250 10 Intake: IV 10 10 Invasive Line 1 10 10 Oral 240 Other: Voiding Method Toilet Toilet # Voids 2 2 Weight 123.2 kg Results 05/04/25 06:59 05/04/25 06:59 Lipids 05/03/25 Range/Units 05:33 Triglycerides 165.00 H (0.00-149.00) mg/dL Cholesterol 150.00 (0.00-200.00) mg/dL HDL Cholesterol 27.30 L (40.00-60.00) mg/dL Cholesterol/HDL Ratio 5.49 Ratio CBC 05/04/25 Range/Units 06:59 WBC 6.49 (4.50-10.00) 10*3/uL RBC 5.38 (4.40-5.60) 10*6/uL Hgb 15.3 (13.0-17.0) g/dL Hct 46.1 (39.6-50.0) % Plt Count 282 (140-440) 10*3/uL Comprehensive Metabolic Panel 05/04/25 Range/Units 06:59 Sodium 142 (137-145) mmol/L Potassium 3.8 (3.5-5.1) mmol/L Chloride 106 (98-107) mmol/L Carbon Dioxide 25 (22-30) mmol/L BUN 11 (9-20) mg/dL Creatinine 1.08 (0.66-1.25) mg/dL Glucose 108 H (74-99) mg/dL Calcium 9.0 (8.4-10.2) mg/dL Current Medications Generic Name Dose Route Start Last Admin Trade Name Freq PRN Reason Stop Dose Admin Acetaminophen 650 mg 05/02/25 15:33 05/03/25 23:06 Acetaminophen Tab 325 Mg Tab PO 650 mg Q4HR PRN Administration Fever and/ or Pain Amlodipine Besylate 5 mg 05/02/25 12:45 05/03/25 08:21 Amlodipine 5 Mg Tab PO 5 mg DAILY BONNY Administration Aspirin 81 mg 05/03/25 09:00 05/03/25 08:21 Aspirin 81 Mg PO 81 mg DAILY BONNY Administration Atorvastatin Calcium 40 mg 05/02/25 12:15 05/03/25 08:21 Atorvastatin 40 Mg Tab PO 40 mg DAILY BONNY Administration Clopidogrel Bisulfate 75 mg 05/03/25 09:00 05/03/25 08:21 Clopidogrel 75 Mg Tab PO 75 mg DAILY BONNY Administration Famotidine 20 mg 05/02/25 21:00 05/03/25 20:46 Famotidine 20 Mg/2 Ml Vial IV 20 mg Q12HR BONNY Administration Heparin Sodium (Porcine) 5,000 unit 05/02/25 21:00 05/03/25 20:47 Heparin Sodium,Porcine 5,000 Unit/Ml 1 Ml Vial SQ 5,000 unit Q12HR BONNY Administration Hydralazine HCl 10 mg 05/02/25 17:53 05/03/25 18:21 Hydralazine Hcl 20 Mg/Ml 1 Ml Vial IVP 10 mg Q4HR PRN Administration Blood Pressure - High Metoprolol Tartrate 12.5 mg 05/03/25 11:00 05/03/25 20:47 Metoprolol Tartrate 12.5 Mg Tab PO 12.5 mg BID BONNY Administration Miscellaneous Information 1 each 05/03/25 10:48 Magnesium Replacement Protocol 1 Each Misc MISCELLANE DAILY PRN Per Protocol Protocol Miscellaneous Information 1 each 05/03/25 10:48 Potassium Replacement Protocol 1 Each Misc MISCELLANE DAILY PRN Per Protocol Protocol Naloxone HCl 0.2 mg 05/02/25 11:51 Naloxone 0.4 Mg/Ml 1 Ml Vial IV Q2M PRN Opioid Reversal Intake and Output 05/03/25 05/04/25 05/04/25 22:59 06:59 14:59 Intake Total 250 10 Balance 250 10 Intake: IV 10 10 Invasive Line 1 10 10 Oral 240 Other: Voiding Method Toilet Toilet # Voids 2 2 Weight 123.2 kg 05/04/25 06:59 05/04/25 06:59
[2025-05-04] MEDS: METOPROLOL TARTRATE 5 MG/5 ML VIAL IVP ONE ×2 (09:52→10:01)
[2025-05-04] MEDS: SODIUM CHLORIDE 0.9% 1,000 ML IV ONE (10:11)
[2025-05-04] MEDS: amLODIPine 5 MG TAB PO STA ×2 (10:26→10:30)
--- NOTE | 2025-05-04 10:26 | CC ---
CARDIAC CATHETERIZATION REPORT PROCEDURE: Transesophageal echo. INDICATION: TIA. PROCEDURE NOTE: After obtaining informed consent, left transesophageal echocardiogram was performed in left lateral position using an Omniplane probe. Local and IV sedation were obtained using 2 mg of Versed, and 50 mcg of fentanyl. The patient was quite anxious prior to the procedure and during the procedure, however, we completed the procedure uneventfully. Immediately after the end of the procedure, he went into regular narrow complex tachycardia that seemed like a run of supraventricular tachycardia, I gave him 5 mg of Lopressor and he is slowing down at the time of this dictation. If necessary, we may have to give him adenosine and even Cardizem. FINDINGS: 1. There is no intracardiac thrombus within the left atrial appendage, left atrium, right atrium, right ventricle, or left ventricle. 2. Left ventricle has normal size and systolic function. 3. There is no evidence of [id number] shunt by color-flow Doppler or [id number] shunt by agitated saline contrast study. Color Doppler evaluation revealed mild mitral regurg. Aortic valve is a 3-leaflet valve. There is no evidence of aortic stenosis or regurgitation. CONCLUSIONS: 1. No intracardiac thrombus. 2. No evidence of shunting across the interatrial septum. MMODL / IJN: [id number] /
[2025-05-04 12:18] VITALS: BP 148/88; PULSE 99; TEMP 98
--- NOTE | 2025-05-04 15:37 | P.PN ---
Subjective Progress Note Date: 05/04/25 I am following up with the patient and he continues to be doing well. No new neurological issues. I was updated by primary team N.P. cannot obtain MRI since MRI machine is down. Objective - Vital Signs Vital signs: Vital Signs Temp 98 F 05/04/25 12:00 Pulse 99 05/04/25 12:00 Resp 17 05/04/25 12:00 BP 148/88 05/04/25 12:00 Pulse Ox 98 05/04/25 12:00 FiO2 Intake & Output 05/03/25 05/04/25 05/04/25 18:59 06:59 18:59 Intake Total 500 20 310 Balance 500 20 310 Weight 123.2 kg Intake: IV 20 20 310 Invasive Line 1 20 20 10 Oral 480 Other: Voiding Method Toilet Toilet Toilet # Voids 2 - Exam GENERAL: The patient is lying in bed and is not in acute distress. NEUROLOGICAL: Higher mental function: The patient is awake, alert, oriented to self, place and time. Patient is following commands. No aphasia and no neglect. Cranial nerves: The pupils are round, equal and reactive to light. Visual mario are full to confrontation throughout. Extraocular movement is intact no nystagmus is noted. Facial sensation is normal to touch throughout. The facial strength is normal throughout. Tongue is midline and moved [id number] without any difficulty. No dysarthria is noted. Shoulder shrug is normal bilaterally. Motor: The strength is 5 over 5 throughout. Normal tone and bulk. Cerebellum: Normal finger to nose bilaterally. Sensation: Sensation is normal to touch throughout. - Labs CBC & Chem 7: 05/04/25 06:59 05/04/25 06:59 Labs: Abnormal Lab Results - Last 24 Hours (Table) 05/04/25 Range/Units 06:59 Glucose 108 H (74-99) mg/dL Assessment and Plan Assessment: This is a 54 y/o gentleman with uncontrolled HTN that stopped taking medications for a couple years who presents because of speech difficulty, not able to get his words out. Transient ischemic attack (TIA) because of uncontrolled risk factors (uncontrolled HTN, dyslipidemia, obese) Hypertension urgency Hypertriglyceridemia Thyroid nodule on CTA History of hypertension and not compliant taking his medication Obesity Plan: Continue ASA 81mg and Plavix 75mg daily for 21 days and after that stop Plavix but continue ASA indefinitely. Is on Lipitor 40mg daily. MRI Brain cannot be completed since machine is down. This will not plant changer and this can be considered possibly as outpatient. MYNOR: No intracardiac thrombus. No evidence of shunting across the interarterial septum. Continue neuro checks Cardiac monitoring PT, OT and PLANT PULLER are consulted Patient was counseled on the importance of medication compliance and making sure his blood pressure is controlled. Upon discharge, recommend the patient to follow-up with outpatient neurologist within 2-3 weeks. For DVT prophylaxis: Is on subq heparin Otherwise, no additional neurological work-up. Time with Patient: Less than 30
[2025-05-05] MEDS ORDERED: amLODIPine 10 MG TAB PO SCH (09:00)
--- NOTE | 2025-05-10 06:06 | P.DS ---
Providers Date of admission: 05/02/25 11:51 Expected date of discharge: 05/04/25 Attending physician: Aamir Villar MD Consults: 05/02/25 11:51 Consult Physician Urgent Consulting Provider: Batsheva Aburto Consult Reason/Comments: expressive aphasia Do you want consulting provider notified?: Yes 05/03/25 15:42 Consult Physician Routine Consulting Provider: Adrian Young Consult Reason/Comments: stroke like sx, want MYNOR Do you want consulting provider notified?: Yes, Notify in am Primary care physician: Stated None Hospital Course: Final diagnosis Expressive aphasia and memory problem/loss, TIA likely MRI was down and unable to perform Hypertensive urgency, present on admission Obesity with BMI of 36.6 Hyperlipidemia noncompliance with medications GI prophylaxis DVT prophylaxis Full code Discharge disposition Patient is being discharged in a stable condition with guarded prognosis to home. Patient will follow-up with Dr. Horne in the outpatient setting upon discharge. Patient is to continue with aspirin and Plavix for 21 days after 21 days may discontinue Plavix and continue aspirin indefinitely. Patient to follow-up with cardiology as well as neurology as scheduled. Total time taken is greater than 35 minutes. Hospital course This is a 54 year-old male who was recently admitted with expressive aphasia and memory loss with difficulties making undergoing neurological workup for CVA. Likely TIA as symptoms have resolved. Patient was being followed closely with neurology along with cardiology underwent MYNOR with no abnormalities noted. Patient's symptoms have resolved and patient will continue on aspirin and Plavix for 21-day course and then discontinue Plavix and continue with aspirin daily. Patient was scheduled for MRI although machine is down and unknown fix time and patient would like to go home. Discussed with consultations and have cleared the patient for discharge recommending close outpatient follow-up with neurology as well as cardiology. Patient also instructed to follow-up with his primary care provider this week. Please refer to other consultation notes for further HPI. Currently no reports of chest pain, shortness of breath, or palpitations. Patient is afebrile. No reports of nausea or vomiting and patient is tolerating diet. Patient will be discharged home today. Guarded prognosis Physical exam: Gen: This is a 54-year-old male who is awake, alert and oriented x 3, well- developed, obese HEENT: Head is atraumatic, normocephalic. Pupils equal, round. Sclerae is anicteric. NECK: Supple. No JVD. No lymphadenopathy. No thyromegaly. LUNGS: Diminished breath sounds bilaterally otherwise clear to auscultation. No wheezes or rhonchi. No intercostal retractions. HEART: Are muffled ABDOMEN: Soft. Obese. Bowel sounds are present. No masses. No tenderness. EXTREMITIES: No pedal edema. No calf tenderness. NEUROLOGICAL: Patient is awake, alert and oriented x3. Cranial nerves 2 through 12 are grossly intact. Please refer to medication reconciliation sheet for a list of medications. The impression and plan of care has been dictated by Kristi Miguel, Nurse Practitioner as directed. Dr. Brody MD I have performed a history and examination and MDM of this patient, discussed the same with the dictator, and agree with the dictator's assessment and plan as written ,documented as a scribe. Based on total visit time, I have performed more than 50% of the visit. Patient Condition at Discharge: Stable Plan - Discharge Summary New Discharge Prescriptions: New Aspirin 81 mg PO DAILY #30 tab Metoprolol Tartrate [Lopressor] 12.5 mg PO BID #60 tab amLODIPine [Norvasc] 10 mg PO DAILY #30 tab Acetaminophen Tab [Tylenol] 650 mg PO Q4HR PRN tab PRN Reason: Fever And/ Or Pain Atorvastatin [Lipitor] 40 mg PO DAILY #30 tab Clopidogrel [Plavix] 75 mg PO DAILY #30 tab Discharge Medication List Acetaminophen Tab [Tylenol] 650 mg PO Q4HR PRN tab 05/04/25 [Rx] Aspirin 81 mg PO DAILY #30 tab 05/04/25 [Rx] Atorvastatin [Lipitor] 40 mg PO DAILY #30 tab 05/04/25 [Rx] Clopidogrel [Plavix] 75 mg PO DAILY #30 tab 05/04/25 [Rx] Metoprolol Tartrate [Lopressor] 12.5 mg PO BID #60 tab 05/04/25 [Rx] amLODIPine [Norvasc] 10 mg PO DAILY #30 tab 05/04/25 [Rx] Follow up Appointment(s)/Referral(s): Adrian Young MD [STAFF PHYSICIAN] - 6 Weeks Damien Horne DO [REFERRING] - 1 Week Abilio Evans MD [Medical Doctor] - 1 Week Patient Instructions/Handouts: Stroke (DC), Transesophageal Echocardiogram (DC) Activity/Diet/Wound Care/Special Instructions: Activity limited until follow-up Follow-up with neurologist this week Follow-up with cardiology outpatient Continue with event monitor Continue with aspirin and Plavix for 21 days, then discontinue Plavix and continue with aspirin indefinitely. Discuss with neurology treatment plan moving forward Discharge Disposition: HOME SELF-CARE
== END 2025-05-04 14:10 | disposition home or self-care (01) ==
LOC: EC 08:57 → INTOOBSV 11:51 → 3SCARD 11:51
PROVIDERS: ADMIT Internal Medicine; ATTEND Internal Medicine
DX: G45.9 Transient cerebral ischemic attack, unspecified (principal); I16.0 Hypertensive urgency; I10 Essential (primary) hypertension; E04.1 Nontoxic single thyroid nodule; E66.9 Obesity, unspecified; E78.1 Pure hyperglyceridemia; Z68.36 Body mass index [BMI] 36.0-36.9, adult; Z79.02 Long term (current) use of antithrombotics/antiplatelets; Z79.82 Long term (current) use of aspirin; Z79.899 Other long term (current) drug therapy; Z87.891 Personal history of nicotine dependence; Z91.148 Patient's other noncompliance with medication regimen for other reason
CPT/HCPCS: 96376 ×2; 96372 ×3; 96374 ×2; 96375; 99291; 36415; 93005; 93312; 93320; 93325; 93270; 97161; 92523; 80061; 80053; 80048 ×2; 84443; 82550; 83735; 84484; 85025 ×3; 85610; 85730; 83036; 71046; 93880; 70496; 70450; 70498; G0378 ×3; J2250; J0360 ×3; J1644 ×3; J3010; Q9967; J1920; J1308 ×3